=== PATIENT | male | born 1995 | race Caucasian/White ===

== ENCOUNTER 2017-09-02 22:32 | Inpatient (IN) | payer MEDICAID ==
[~2017-09-02] VITALS: Ht 175.3 cm; Wt 77.1 kg
[~2017-09-02 22:32] MED LIST: ALBU8.5H4
--- NOTE | 2017-09-02 22:50 | NUR ---
PT A/OX4 BREATHING EFFORTLESSLY ON ROOM AIR, PT C/O LLQ ABD PAIN X 1 DAY WITH N/V BUT DENIES DIARRHEA, PT FAMILY AT BEDSIDE, PT ON MONITOR, IV PLACED LABS DRAWN, MD MADE AWARE WILL CONTINUE TO MONITOR.
[2017-09-02 23:19] LABS: BASOPHILS % (AUTO) 0.3 % (0.0-2.0); EOSINOPHILS # (AUTO) 0.1 /CMM (0.0-0.7); HEMATOCRIT 49 % (39-51); HEMOGLOBIN 16.5 g/dL (13.5-17.5); LYMPHOCYTES # (AUTO) 1.3 /CMM (0.8-4.8); LYMPHOCYTES % (AUTO) 12.7 % (20.0-44.0); MEAN CORPUSCULAR HEMOGLOBIN 29 PG (26.0-33.0); MEAN CORPUSCULAR HGB CONC 33 g/dl (31.0-36.0); MEAN CORPUSCULAR VOLUME 88 fL (80-96); MONOCYTES # (AUTO) 0.9 /CMM (0.1-1.30); MONOCYTES % (AUTO) 8.6 % (2.0-12.0); NEUTROPHILS # (AUTO) 7.9 /CMM (1.8-8.9); NEUTROPHILS % (AUTO) 77.4 % (43.0-81.0); PLATELET COUNT (AUTO) 320 /CMM (150-450); RDW COEFFICIENT OF VARIATION 12.5 (11.5-15.0); WHITE BLOOD COUNT (AUTO) 10.2 K/uL (4.3-11.0)
[2017-09-02 23:30] LABS: CALCIUM, SERUM 9.6 mg/dL (8.5-10.1); CREATININE 1.1 mg/dL (0.6-1.3); POTASSIUM 3.3 mmol/L (3.5-5.1)
[2017-09-02 23:33] LABS: INR 0.96 (0.87-1.13)
[2017-09-02 23:35] LABS: ALBUMIN 4.3 g/dL (3.4-5.0); BILIRUBIN,DIRECT 0.2 mg/dL (0.0-0.2); TOTAL PROTEIN, SERUM 8.7 g/dL (6.4-8.2)
--- NOTE | 2017-09-02 23:47 | NUR ---
PT BACK FROM CT
[2017-09-03] MEDS ORDERED: BARIUM SULFATE 98% 135 ML SUSP.RECON PO ONE (00:51)
[2017-09-03] MEDS ORDERED: BARIUM SULFATE SUSP 450 ML BOTTLE PO ONE (00:52)
[2017-09-03] MEDS ORDERED: ONDANSETRON HCL/PF 4 MG/2 ML VIAL IV ONE (01:00)
[2017-09-03] MEDS ORDERED: ONDANSETRON HCL/PF 4 MG/2 ML VIAL ONE (01:01)
--- NOTE | 2017-09-03 01:08 | NUR ---
URINE OBTAINED AND SENT TO LAB
[2017-09-03 01:17] LABS: APPEARANCE,URINE CLEAR (CLEAR); BILIRUBIN,URINE NEGATIVE (NEGATIVE); BLOOD, URINE 1+ Ery/uL (NEGATIVE); COLOR,URINE YELLOW (YELLOW); KETONES,URINE TRACE (NEGATIVE); LEUKOCYTE ESTERASE ,URINE NEGATIVE (NEGATIVE); NITRITE, URINE NEGATIVE (NEGATIVE); PROTEIN,URINE NEGATIVE (NEGATIVE); UGLUCOSE NEGATIVE (NEGATIVE); UROBILINOGEN,URINE 0.2 EU/dL (0.2)
[2017-09-03 01:22] LABS: RBC,URINE 0-2 /HPF (0-2); WBC,URINE 0-2 /HPF (0-3)
[2017-09-03 01:23] LABS: BACTERIA,URINE None seen /HPF (None Seen); SQUAMOUS EPITHELIAL CELL,UR Few /HPF (None Seen)
[2017-09-03] MEDS ORDERED: IOHEXOL-300 100 ML VIAL IV ONE (01:50)
[2017-09-03] MEDS ORDERED: IV NS 0.9% 250 ML IV ONE (01:50)
[2017-09-03] MEDS ORDERED: CT SWABBABLE VALVE TRANS SET 1 EA INFUS.SET MC ONE (01:50)
--- NOTE | 2017-09-03 03:05 | NUR ---
M/S 314-2
--- NOTE | 2017-09-03 03:18 | NUR ---
GAVE REPORT TO CHRISTO ON M/S.
[2017-09-03 03:20] VITALS: BP 122/62
[2017-09-03] MEDS ORDERED: IV NS 0.9% 1,000 ML BAG IV ONE ×2 (03:30)
[2017-09-03] MEDS: POTASSIUM CL. PREMIX PERIPHER. 50 ML IV SCH ×4 (03:30→06:30)
--- NOTE | 2017-09-03 03:42 | NUR ---
PANEL CALL MADE; DR. POLANCO TRANSFERED TO DR. OSORIO.
--- NOTE | 2017-09-03 03:47 | NUR ---
CALLED M/S TO INFORM CHRISTO THAT POTASSIUM WAS NOT GIVEN; NO POTASSIUM IN ER OMNICELL.
[2017-09-03 03:50] VITALS: BP 119/68
--- NOTE | 2017-09-03 03:50 | NUR ---
RN NOTES: ADMITTED A 21 YO MALE PATIENT WHO WAS SEEN IN THE ER FOR LEFT SIDED ABDOMINAL PAIN, N/V. PATIENT WAS BROUGHT TO MS FLOOR VIA W/C, AOX4, ON ROOM AIR, BREATHING EVEN AND UNLABORED, BREATH SOUNDS CLEAR TO AUSCULTATION. PATIENT STATES ABDOMINAL PAIN IS FELT OVER LEFT ABDOMEN, NON RADIATING, SCALED AT 5/10 AT THIS TIME. PATIENT STATES LAST VOMITING EPISODE WAS BEFORE HE WAS SEEN IN THE ER, AND NOW DENIES NAUSEA. PIV OVER LAC G 18 INTACT AND INFUSING WELL WITH NS BOLUS WHICH WAS STARTED IN ER. ADMITTING CARE DONE. PROVIDED FOR COMFORT AND SAFETY. ORIENTED TO UNIT. BED IN LOWEST AND LOCKED POSITION, SIDERAILS UPX3, WILL CONT TO MONITOR.
--- NOTE | 2017-09-03 04:00 | NUR ---
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 PER DR POLANCO, GIVEN 100 MEQS PO KDUR NOW WITH SMALL SIPS OF WATER THEN KEEP PATIENT NPO. NOTED AND CARRIED OUT.
[2017-09-03] MEDS ORDERED: POTASSIUM CHLORIDE 20 MEQ TAB.PRT.SR PO ONE ×5 (04:14→05:00)
[2017-09-03] MEDS ORDERED: IV NS 0.9% 1,000 ML IV PRN (05:21)
[2017-09-03] MEDS ORDERED: MAG HYDROX/AL HYDROX/SIMETH 30 ML UDC PO PRN (05:30)
[2017-09-03] MEDS ORDERED: MAGNESIUM HYDROXIDE 30 ML UDC PO PRN (05:30)
[2017-09-03] MEDS ORDERED: ONDANSETRON HCL/PF 4 MG/2 ML VIAL IVP PRN (05:30)
[2017-09-03] MEDS ORDERED: ZOLPIDEM TARTRATE 5 MG TABLET PO PRN (05:30)
[2017-09-03] MEDS ORDERED: ACETAMINOPHEN 325 MG TABLET PO PRN (05:30)
[2017-09-03] MEDS ORDERED: Z GUARD REMEDY 2 OZ OINT TP PRN (05:30)
--- NOTE | 2017-09-03 06:43 | NUR ---
MS RN CLOSING NOTES: PATIENT IN BED, AOX4, ON ROOM AIR, BREATHING EVEN AND UNLABORED. APPEARS CALM AND IN NO DISTRESS, STILL COMPLAINS OF MILD ABDOMINAL PAIN, DENIES ANY NAUSEA. MAINTAINED ON NPO. PROVIDED FOR COMFORT AND SAFETY. BED IN LOWEST AND LOCKED POSITION, SIDERAILS UP X2, CALL LIGHT WITHIN REACH. WILL ENDORSE TO AM RN FOR ANGELICA.
[2017-09-03 08:00] VITALS: BP 107/57
[2017-09-03 12:38] LABS: CALCIUM, SERUM 8.6 mg/dL (8.5-10.1); CREATININE 0.9 mg/dL (0.6-1.3); POTASSIUM 3.8 mmol/L (3.5-5.1)
[2017-09-03 16:00] VITALS: BP 108/57
--- NOTE | 2017-09-03 17:53 | NUR ---
M/S RN - Discharge Notes Patient awake, denies abdominal pain, no c/o n/v, tolerated regular diet well, no apparent distress seen, stable for discharge home today. Reviewed discharge instructions with patient and he verbalized full understanding of all teachings including follow up care with his PCP in 1 week. No prescriptions and no new meds ordered. Heplock removed on the LAC with catheter tip intact, no swelling, no redness noted on the area. Skin is intact, refused photo to be taken. All belongings given and he denies any missing items. Discharge papers given. Accompanied to the lobby and transported by private car.
== END 2017-09-03 18:06 | disposition home or self-care (01) | DRG 247 ==
LOC: ER 22:36 → MED 09-03 03:36
PROVIDERS: ADMIT Internal Medicine; ATTEND Internal Medicine
DX: K56.7 Ileus, unspecified (principal); E87.6 Hypokalemia; J45.909 Unspecified asthma, uncomplicated; J06.9 Acute upper respiratory infection, unspecified
CPT/HCPCS: 36415; 80048-TC; 80076-TC; 80305; 81000-TC; 83690-TC; 85025-TC; 85730-TC; 87081-TC; 87086-TC; 93307-TC; A4606; J2405; J7030; J7050; Q9967; Z7610

== ENCOUNTER 2019-09-18 19:29 | Emergency (ER) | payer MEDICAID, OTHER ==
[~2019-09-18] VITALS: Ht 175.3 cm; Wt 77.1 kg
[2019-09-18 19:30] VITALS: BP 122/82
[2019-09-18] MEDS ORDERED: DEXAMETHASONE SOD PHOSPHATE 10 MG/ML VIAL ONE (22:37)
[2019-09-18] MEDS ORDERED: DEXAMETHASONE SOD PHOSPHATE 4 MG/ML VIAL IM ONE (23:00)
== END 2019-09-18 22:42 | disposition home or self-care (01) ==
LOC: ER 19:34
DX: J02.9 Acute pharyngitis, unspecified (principal); J45.909 Unspecified asthma, uncomplicated
CPT/HCPCS: 96372; 99283; J1100